=== PATIENT | female | born 1980 | race Caucasian/White ===

== ENCOUNTER 2024-01-21 07:06 | Day surgery (SDC) | payer OTHER ==
[~2024-01-21] VITALS: Ht 157.5 cm; Wt 93.0 kg
[2024-01-21] MEDS ORDERED: fentaNYL citrate 0.05 MG/ML VIAL ONE (09:26)
[2024-01-21] MEDS: fentaNYL citrate 0.05 MG/ML VIAL IVP ONE (09:47)
[2024-01-21] MEDS: LIDOCAINE 2% 100 MG/5 ML UJET TP ONE (09:57)
== END 2024-01-21 11:17 | disposition home or self-care (01) ==
LOC: MMU 07:06 → MDS 07:06
PROVIDERS: ATTEND Internal Medicine Gastroenterology
DX: K59.00 Constipation, unspecified (principal); Z98.84 Bariatric surgery status; Z80.3 Family history of malignant neoplasm of breast; Z98.890 Other specified postprocedural states
CPT/HCPCS: 45378; J3010